=== PATIENT | female | born 1995 | race African-American/Black ===

== ENCOUNTER 2025-01-31 22:06 | Emergency (ER) | payer SELFPAY ==
[~2025-01-31] VITALS: Ht 152.4 cm; Wt 67.0 kg
[2025-01-31 22:18] VITALS: O2SAT 99
[2025-01-31] MEDS: METHYLPREDNISOLONE SOD SUCC 125MG/2ML (ACT-O-VIAL) IV ONE (23:02)
[2025-01-31] MEDS: ONDANSETRON HCL 4MG/2ML INJ IV ONE (23:02)
[2025-01-31] MEDS: DIPHENHYDRAMINE 50MG/ML VIAL IV ONE (23:02)
[2025-01-31] MEDS: FAMOTIDINE 20MG/2ML VIAL IV ONE (23:02)
[2025-02-01 00:30] VITALS: BP 136/86; PULSE 74; RESP 17; TEMP 36.6; O2SAT 100
== END 2025-02-01 00:44 | disposition home or self-care (01) ==
LOC: ER 22:06
DX: T78.1XXA Other adverse food reactions, not elsewhere classified, initial encounter (principal); Z91.010 Allergy to peanuts; X58.XXXA Exposure to other specified factors, initial encounter
CPT/HCPCS: 96374; 96375; 99284; J1200; J1308; J2919; J2405; Z7610 ×2